=== PATIENT | female | born 1980 | race Caucasian/White ===

== ENCOUNTER 2023-08-07 19:37 | Emergency (ER) | payer OTHER, SELFPAY ==
[2023-08-07] VITALS (7 sets, daily range): BP systolic 82–145; BP diastolic 49–112; BMI 44.4
[2023-08-07] MEDS: ADENOCARD 6 MG IV (20:00)
[2023-08-07] MEDS: ADENOCARD 12 MG IV (20:01)
--- NOTE | 2023-08-07 20:03 | EDRN ---
1958-Dr Baptiste present at bedside
1999-Per ER Dr Baptiste verbal order at beside, pt was given 6mg Adenosine IVP NOW for SVT.
2000- NO change in SVT. Per ER Dr Baptiste verbal order at bedside, the pt was given 12 mg Adenosine IVP NOW for SVT. pt converted into sinus tachycardia rhythym. repeat EKG obtained and reviewed by ER Dr Baptiste present at bedside.
--- NOTE | 2023-08-07 20:04 | ED.GENMED ---
History of Present Illness
General
Chief Complaint: Chest Pain
Source: patient
Time Seen by Provider: 08/07/23 19:56
Travel History
Have you had any contact with someone who has COVID-19?: No
Do you have any symptoms of coronavirus? Fever > 100 degrees, chills, cough, shortness of breath, sore throat, loss of taste or smell, muscle aches, or headache?: No
History of Present Illness
History of Present Illness:
43-year-old female presents to the emergency room for evaluation of rapid heart rate. Patient states she was sitting on the couch when she suddenly felt her heart rate becomes fast. She has a history of SVT. She states she attempted a vagal
maneuver by bearing down like she was having a bowel movement but this did not help. She has required adenosine in the past. Patient is very upset by the sensation of her rapid heart rate.
Past History
Past History
ED Past Medical History: Arrthythmia (SVT), HTN, Hypothyroidism, Psychiatric (Depression) and Other (Migraines, Ovarian cysts, fibroids)
ED Past Surgical History: Tonsilectomy and Other (tummy Tuck)
Social History
Tobacco: Non-smoker
Alcohol: Occasional
Drug: None
Personal: Single
Living: with family
Family History
Family History: Hypertension
Phy Exam
Physical Exam
Physical Exam:
General: Awake, Alert, Oriented X3. Tearful, anxious
Vitals: Tachycardic
Head: Atraumatic
Eyes: Pupils equal, EOMI
Throat: Airway intact, no exudates
Neck: Trachea midline
Lungs: Clear and equal b/l
Heart: Tachycardic, regular rate, no murmurs
Abd: Soft, Nontender, No pulsatile mass
Neuro: Nonfocal
Skin: Warm, dry, no rash
Extremities: pulses equal b/l, no edema
Scores
Heart Score for Chest Pain Patients
STEMI patient?: Not applicable
Course
Orders/Labs/Results
Orders:
Orders
08/07/23 19:39
Electrocardiogram (*1) Urgent
Reason for Study: Chest Pain
EKG- Treatment ONCE
08/07/23 19:45
Adenosine [Adenocard] 18 mg .ROUTE .STK-MED ONE
08/07/23 20:00
Adenosine [Adenocard] 6 mg IV NOW STA
08/07/23 20:01
Adenosine [Adenocard] 12 mg IV NOW STA
Vital Signs
Initial and Last Documented VS:
Initial Vital Signs
Temp Pulse Resp Pulse Ox
98 F 199 24 98
08/07/23 19:44 08/07/23 19:44 08/07/23 19:44 08/07/23 19:44
Last Documented Vital Signs
Temp Pulse Resp BP Pulse Ox
98 F 93 21 82/72 97
08/07/23 19:44 08/07/23 21:30 08/07/23 21:30 08/07/23 21:30 08/07/23 21:30
MDM/Problems Addressed
Differential Diagnosis Includes:
SVT, A fib, a flutter
MDM/Problems Addressed:
Patient presents complaining of rapid heart rate. EKG shows SVT. She does have a history of SVT. We attempted vagal maneuvers here but patient was intolerant of the attempts. Patient was given 6 mg of adenosine without any change in rhythm. She
was then given 12 mg of adenosine which did result in resumption of sinus tachycardia. Will observe the patient to make sure she maintains sinus rhythm. If socially stable for discharge and follow-up with Dr. Castellano as an outpatient.
Repeat EKG is sinus tachycardia at 113, normal axis, normal intervals, no ischemic changes
*Pulse Oximetry
Patient hypoxic: no
*EKG
Interpreted by ED Provider?: Yes
Interpretation: abnormal
Heart Rate: 191
Rate: tachycardiac
Rhythm: SVT
QRS Pattern: normal QRS
Ischemia: non-specific ST changes
*Securities And Real Estate Director Interpretation
Rate: tachycardiac
Interpretation: abnormal
Rhythm: SVT
*Critical Care Note
Total Time (30-74mins, 75-104mins- exclusive of procedures): Not Applicable
ED Attending Note
-
Portions of this chart may have been created with voice recognition software.� Occasional wrong word or��sound alike� substitutions may have occurred due to the inherent limitations of voice recognition software.
Discharge Plan
Departure
Patient Disposition: Home (Routine Discharge)
Date of Disposition: 08/07/23
Time of Disposition: 21:10
Patient with high blood pressure during this ER visit?: No
Condition: Good
Discharge Problem:
Paroxysmal SVT (supraventricular tachycardia)
Instructions: Supraventricular tachycardia (SVT)
Prescriptions:
No Action
clonazepam 0.5 MG tablet
1 tab PO HS
levothyroxine 100 MCG tablet
100 mcg PO DAILY
duloxetine 60 MG capsule,delayed release(DR/EC)
120 mg PO DAILY
multivitamin [Daily Multiple] 1 EACH tablet
1 ea PO DAILY
quetiapine 25 MG tablet
25 mg PO HS
ethynodiol diac-eth estradiol 1 TAB tablet
1 tab PO BID
hydrocodone-acetaminophen [[place]] 1 EACH tablet
1 ea PO Q6HPRN PRN (Reason: pain) Qty: 7 0RF
prochlorperazine maleate 10 MG tablet
10 mg PO Q8HPRN PRN (Reason: headache and nausea) Qty: 10 1RF
cefpodoxime 200 mg tablet
200 mg PO BID 7 Days Qty: 14 0RF
lidocaine 4 % adhesive patch,medicated
1 patch topical DAILY PRN (Reason: pain) Qty: 10 0RF
prednisone 50 mg tablet
50 mg PO DAILY 4 Days Qty: 4 0RF
cyclobenzaprine 10 mg tablet
10 mg PO Q8H PRN (Reason: muscle spasm) Qty: 7 0RF
naproxen sodium 550 mg tablet
550 mg PO TID Qty: 20 0RF
Referrals:
Aristides Roldan, DO [Active] -
Interventions
Interventions:
*Risk Screen - Suicide Last Done: 08/07/23 21:39
*General Assessment Last Done: 08/07/23 19:55
*Neglect/Abuse Screening Last Done: 08/07/23 19:55
ED- Fall Risk Assessment Last Done: 08/07/23 21:39
*ED COVID-19 Vaccine History Last Done: 08/07/23 21:39
*Nursing Disposition Last Done: 08/07/23 21:48
ED- Cardiac Assessment Last Done: 08/07/23 21:40
Discharge Date and Time
Discharge Date/Time: 08/07/23 21:49
Print Language: UGANDAN
== END 2023-08-07 21:49 | disposition home or self-care (01) ==
LOC: EMR 19:37
PROVIDERS: EMERGENCY PHYSICIAN Emergency Medicine; FAMILY PHYSICIAN Physician Assistant Medical
DX: I47.19 Other supraventricular tachycardia (principal)
CPT/HCPCS: 99284; 96374; 93005; J0153

== ENCOUNTER → 2023-09-09 15:53 | Outpatient (REF) | payer OTHER, SELFPAY | LOC: HWRCS 15:53 | PROVIDERS: ATTENDING PHYSICIAN Nurse Practitioner; FAMILY PHYSICIAN Physician Assistant Medical | DX: R06.00 Dyspnea, unspecified (principal) | CPT/HCPCS: 93306 ==

== ENCOUNTER → 2023-09-15 12:43 | Outpatient (REF) | payer OTHER, SELFPAY | LOC: RCS 12:43 | PROVIDERS: ATTENDING PHYSICIAN Nurse Practitioner; FAMILY PHYSICIAN Physician Assistant Medical | DX: I10 Essential (primary) hypertension (principal); R00.2 Palpitations; I34.0 Nonrheumatic mitral (valve) insufficiency; R06.00 Dyspnea, unspecified | CPT/HCPCS: 93017 ==

== ENCOUNTER → 2023-10-28 08:56 | Outpatient (REF) | payer OTHER, SELFPAY | LOC: RAD 08:56 | PROVIDERS: ATTENDING PHYSICIAN Physician Assistant Medical | DX: Z00.00 Encounter for general adult medical examination without abnormal findings (principal) | CPT/HCPCS: 93971 ==

== ENCOUNTER → 2023-10-29 09:21 | Outpatient (REF) | payer OTHER, SELFPAY | LOC: WDC 09:21 | PROVIDERS: ATTENDING PHYSICIAN Physician Assistant Medical | DX: Z12.31 Encounter for screening mammogram for malignant neoplasm of breast (principal); Z00.00 Encounter for general adult medical examination without abnormal findings | CPT/HCPCS: 77063; 77067 ==

== ENCOUNTER 2023-11-18 08:13 | Day surgery (SDC) | payer OTHER, SELFPAY ==
[2023-11-11 13:29] VITALS: BMI 43.5
[2023-11-11 14:02] LABS: % Basophils 0.6 % (0-2); % Eosinophils 3.3 % (0-6); % Immature Granulocytes 0.4 % (0-0.5); % Lymphocytes 33.8 % (20.5-51.1); % Monocytes 6.1 % (1.7-9.3); % Neutrophils 55.8 % (42.2-75.2); Absolute Basophils 0.1 10^3/uL (0-0.2); Absolute Eosinophils 0.4 10^3/uL (0-0.7); Absolute Lymphocytes 3.8 10^3/uL (1.2-3.4); Absolute Monocytes 0.7 10^3/uL (0.1-0.6); Absolute Neutrophils 6.3 10^3/uL (1.4-6.5); Hemoglobin 13.9 g/dL (12.0-16.0); Mean Corp Hgb Conc. 33.9 g/dL (33.0-37.0); Mean Corpuscular Volume 94.3 fL (81.0-99.0); Mean Platelet Volume 8.8 fL (7.4-10.4); Nucleated Red Blood Cells % 0 %; Platelet Count 428 10^3/uL (130-400); Red Blood Cell Count 4.35 10^6/uL (4.20-5.40); Red Cell Dist. Width 12.7 % (11.5-14.5); White Blood Cell Count 11.3 10^3/uL (4.8-10.8)
[2023-11-11 14:24] LABS: HCG, Serum Qualitative Screen Negative
[2023-11-11 14:41] LABS: ALT (SGPT) 32 U/L (0-35); AST (SGOT) 36 U/L (14-36); Albumin 4.3 g/dl (3.5-5.0); Alkaline Phosphatase 54 U/L (38-126); Blood Urea Nitrogen 9 mg/dl (7-17); Calcium 9.3 mg/dl (8.4-10.2); Carbon Dioxide 24 mmol/L (22-30); Chloride 105 mmol/L (98-107); Estimated Creatinine Clearance 109 ml/min; Glucose 83 mg/dl (70-99); Magnesium 2.1 mg/dl (1.6-2.3); Potassium 4.2 mmol/L (3.5-5.1); Sodium 139 mmol/L (135-145); Total Bilirubin 0.6 mg/dl (0.2-1.3); Total Protein 6.7 g/dl (6.3-8.2); eGFR > 60.00
[2023-11-18] VITALS (10 sets, daily range): BP systolic 102–149; BP diastolic 50–96
[2023-11-18 09:31] LABS: HCG, Urine Qualitative Screen Negative
--- NOTE | 2023-11-18 10:44 | ITS.CL.ABL ---
Nutritional Yeast Supervisor - Ablation
Ablation
Procedure Report:
Primary Physician: Radha Jimenez PA-C
Primary Civil Litigation Attorney: Aristides Roldan DO
Procedure Date: 11/18/2023
Procedure
Electrophysiology Study with SVT ablation
Left atrial recording / pacing
IV drug for arrhythmia induction
Patient History
Patient is a pleasant 43-year-old female with a past medical history significant for hypertension, obesity, hypothyroidism, depression, palpitations, and paroxysmal symptomatic supraventricular tachycardia. Patient had 2 episodes requiring
emergency department evaluation. Patient had an narrow complex SVT at 191 beats per minute terminated with adenosine.
Method
After informed consent was obtained, the patient was brought to the EP lab in a post-absorptive, non-sedated state. A peripheral IV was in place. Continuous electrocardiography, blood pressure and pulse oximetry monitoring was initiated and
cardioversion / defibrillator electrodes were positioned on the chest in an AP orientation. A 'time-out' was called. Conscious sedation was administered with the assistance of the anesthesia services, and local anesthesia was given at the femoral
vein access sites.
Using modified Seldinger technique, vascular access was achieved and sheaths were placed. Multipolar catheters were advanced to the coronary sinus, His bundle recording position, right ventricle, and high right atrium. Following the determination
of baseline conduction intervals, comprehensive EP study was performed. Pacing and recording from the RA, RV, HBE, and CS / LA was performed.
For arrhythmia details, see below.
Fluoroscopy time:
7.1 min; 48.85 mGy; DAP 5.41
Total RF time:
7 min 35 s
Estimated Blood Loss
5 mL
Complications
None
At the end of the procedure, all catheters and sheaths were removed and hemostasis was assured with Vascade for each sheath and manual pressure. Protamine was used for reversal. The patient was returned to the recovery area in stable condition.
Access Sites:
Left Femoral Vein: 2 sheaths (7 Fr, 6 Fr)
Right Femoral Vein: 2 sheaths (9 Fr upsized to 11.5 Fr, 6 Fr)
Baseline Intervals:
Rhythm: SR
TN: 138 ms
AH: 65 ms
HV: 37 ms
QRS: 79 ms
QT: 350 ms
QTc: 454 ms
A-A: 594 ms
R-R: 594 ms
Post-Procedure Intervals:
TN: 148 ms
AH: 42 ms
HV: 44 ms
QRS: 74 ms
QT: 393 ms
QTc: 469 ms
AV Conduction:
- AVWB at 250 msec (pre ablation), 290 ms (post-ablation)
- VAWB at 290 msec (pre and post ablation)
Refractory Periods
- AERP 600/230 ms
Procedure Synopsis:
The patient entered the room in sinus rhythm. Following catheter placement as noted above, baseline electrophysiology today was performed. Baseline measurements were taken. Following special testing, AV and VA Wenckebach performed. Next,
para-hisian pacing was performed demonstrating shruti response. Next, single extra stimuli were performed from the proximal coronary sinus catheter. Decremental conduction was noted without an AH jump or echo beat(s). A narrow complex SVT (A on V)
was induced with single extra stimuli at 600/250 ms. Tachycardia cycle length was noted to be 310-340 ms. Ventricular overdrive pacing was performed which demonstrated a VA(H)V response. With ventricular overdrive pacing, PPI minus TCL was noted
to be 153 ms (greater than 115 ms indicative of AV shruti reentrant tachycardia), stim-A minus VA time noted 115 ms (greater than 85 ms again indicative of AV shruti range tachycardia). Next, atrial overdrive pacing was performed which demonstrated
an AH in response. Following these maneuvers, tachycardia was terminated with ventricular overdrive pacing. 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 Atrial catheter was
removed from the 9 Jordanian sheath and heparin was given for goal ACT 300�400. HD grid catheter used to map right atrium specifically slow pathway region with low voltage bridge. Additional mapping performed creating a HIS signal cloud. Following
mapping, 9 Jordanian sheath was exchanged for a steerable 11.5 Jordanian sheath. A FlexianttiCaMicromuscle SE D/F ablation catheter was inserted into the RA via steerable sheath and used in a low flow state. Ablation was performed at 25W with careful monitoring of
impedance, force, temperature, and AV conduction. AV Conduction persisted before, during, and after ablation. Ablation was performed at the mapped low voltage bridge area and level of the CS with A:V signal 1:3-1:10; no HIS signal was noted on
ablation distal prior to starting each ablation lesion. Careful monitoring noted for AV conduction. Junctional beats noted during ablation. Following ablation lesions, repeat testing was performed on isoproterenol and during isoproterenol washout.
Throughout testing, no inducible arrhythmia was noted. Patient did not possess an AH jump. No echo beats were noted during extrastimuli testing as well. Baseline measurements recorded. AH/HV, TN measurements consistent with pre-ablation with
consistent AV conduction. Catheters were removed and hemostasis achieved as noted above.
Recommendations
- Admit to telemetry
- Bedrest with straight-leg precautions
- Continue home medications as indicated
- Follow-up in office as scheduled with Dr. Roldan
Jase Hendricks DO
Clinical Cardiac Electrophysiology
cc: Radha Jimenez PA-C; Aristides Roldan DO
[2023-11-18 12:19] LABS: ACT-LR - POC 232 Seconds (116-155)
[2023-11-18 13:08] LABS: ACT-LR - POC 236 Seconds (116-155)
== END 2023-11-18 16:30 | disposition home or self-care (01) ==
LOC: CATH 08:13
PROVIDERS: Nurse Practitioner; ATTENDING PHYSICIAN Internal Medicine Cardiovascular Disease; FAMILY PHYSICIAN Physician Assistant Medical; OTHER PHYSICIAN Nuclear Medicine Nuclear Cardiology
DX: I47.10 Supraventricular tachycardia, unspecified (principal); R42 Dizziness and giddiness; R00.2 Palpitations; R06.02 Shortness of breath; R53.83 Other fatigue; E66.01 Morbid (severe) obesity due to excess calories; I10 Essential (primary) hypertension; F32.A Depression, unspecified; E03.9 Hypothyroidism, unspecified; F41.9 Anxiety disorder, unspecified; Z79.899 Other long term (current) drug therapy; G43.909 Migraine, unspecified, not intractable, without status migrainosus
CPT/HCPCS: C1732; C1730; C1894; C1766; C2630; C1892; 36415; 76937; 80053; 81025; 83735; 84703; 85025; 85347; 93005; 93623; 93653; C1760